=== PATIENT | male | born 1945 | race Caucasian/White ===

== ENCOUNTER 2021-11-28 02:45 | Outpatient (CLI) | payer OTHER, SELFPAY ==
--- NOTE | 2021-12-01 14:32 | PDOC.EEG ---
Neurology EEG EEG: [facility] Department of Neurology EEG REPORT Date of Recordin11/28/21 Interpreting Physician: Dr. Caryn Echols PCP/Referring Provider: Dwight Bland NP Reason for study: Mr. Barrera is a 76 year-old man with several episodes of amnesia/memory loss. Current Medications: amlodipine, 10mg daily, famotidine 20mg daily, HCTZ 25mg daily, losartan 50mg daily, pravastatin 40mg daily, ASA 81mg daily METHODS: A 21 channel digitized electroencephalogram was performed in the [facility]. The 10/20 international system of electrode placement was used and bipolar and referential electrode montages were recorded. In addition to EEG the patient was monitored for EKG and lateral/vertical eye movements. Activation procedures of photic stimulation and hyperventilation were performed if applicable. Video was used during activation procedures and during events where applicable. The duration of the recording was 30 minutes. DESCRIPTION OF EEG: The patient was noted to be awake, drowsy, and asleep during the recording. During maximal wakefulness a 9-Hz posterior background rhythm was present which was well-modulated, symmetrical, reactive to eye opening, and of moderate voltage. With eye opening the background activity changed to a low voltage mixture of alpha, beta, and occasional theta range frequencies. Faster frequencies were present in the bilateral anterior head regions. There was a normal anterior-posterior voltage gradient. During drowsiness, there was attenuation of the posterior dominant background rhythm and vertex waves. Stage II sleep was present with symmetrical sleep spindles, K-complexes, and vertex waves. Please note that he fell asleep rather quickly with noted deep/heavy breathing while asleep. Activating Procedures: Photic stimulation was performed which produced no posterior driving response. Hyperventilation was not performed. EKG: EKG revealed normal sinus rhythm. INTERPRETATION: This EEG is normal during the awake and sleep states as well as during photic stimulation. PRIOR EEG: none CLINICAL CORRELATION: No focal regions of cerebral dysfunction or epileptiform activity was present. Epilepsy remains a clinical diagnosis and a normal EEG does not rule out epilepsy. Please note that he fell asleep rather quickly with noted deep/heavy breathing while asleep. This could be indicative of an underlying sleep disorder in the right clinical context. Correlate clinically. Caryn Echols MD
== END 2021-11-28 02:46 | disposition home or self-care (01) ==
LOC: RT 02:45
PROVIDERS: Visit Provider Nurse Practitioner Family
DX: R41.3 Other amnesia (principal)
CPT/HCPCS: 95819

== ENCOUNTER 2024-03-21 07:33 | Outpatient (CLI) | payer OTHER, SELFPAY ==
--- NOTE | 2024-03-21 22:47 | PDOC.EEG ---
Neurology EEG EEG: [facility] Department of Neurology EEG REPORT Date of Recordin03/21/24 Interpreting Physician: Dr. Caryn Echols PCP/Referring Provider: Dr. David Casey Reason for study: Kenny Barrera is a 78 year-old with episodes of confusion over the last few years - concerning for seizures. Current Medications: Amlodipine 10 mg QD Clopodpgre; 75 mg QD Ezetimibe 10 mg ASA 81 mg QD Fluticasone 2 sprays QD Furosemide 20 mg QD HCTZ 25 mg QD Losartan 50 mg QD Mirtazapine7.5 mg QHS Tamsulosin 0.8 mg Q METHODS: A 21 channel digitized electroencephalogram was performed in the [facility]. The 10/20 international system of electrode placement was used and bipolar and referential electrode montages were recorded. In addition to EEG the patient was monitored for EKG and lateral/vertical eye movements. Activation procedures of photic stimulation and hyperventilation were performed if applicable. Video was used during activation procedures and during events where applicable. The duration of the recording was 30 minutes. DESCRIPTION OF EEG: The patient was noted to be awake, drowsy, and asleep during the recording. During maximal wakefulness a 10-Hz posterior background rhythm was present which was well-modulated, symmetrical, reactive to eye opening, and of moderate voltage. With eye opening the background activity changed to a low voltage mixture of alpha, beta, and occasional theta range frequencies. Faster frequencies were present in the bilateral anterior head regions. There was a normal anterior-posterior voltage gradient. During drowsiness, there was attenuation of the posterior dominant background rhythm and vertex waves. He very quickly fell asleep. Stage II sleep was present with symmetrical sleep spindles, K-complexes, and vertex waves. There was a single T4 sharp-wave during sleep. This was not clearly epileptic. Activating Procedures: Photic stimulation was performed which produced no posterior driving response. Hyperventilation was not performed. EKG: EKG revealed normal sinus rhythm. INTERPRETATION: This EEG is normal during the awake and sleep states as well as during photic stimulation. There was a single right temporal sharp wave that was not clearly epileptic. PRIOR EEG: -11/28/21: normal during the awake and sleep states as well as during photic stimulation. CLINICAL CORRELATION: No definite focal regions of cerebral dysfunction or epileptiform activity was present. Single non-specific finding above. Could consider a repeat sleep deprived EEG or overnight ambulatory EEG as further work-up if clinically helpful. Patient was also once again noted to fall asleep very quickly during the study. This could indicate an underlying sleep disorder. Epilepsy remains a clinical diagnosis and a normal EEG does not rule out epilepsy. Clinical correlation is advised. Caryn Echols MD Date of service: 03/21/24
== END 2024-03-21 07:34 | disposition home or self-care (01) ==
PROVIDERS: Visit Provider Psychiatry & Neurology Neurology
DX: R40.4 Transient alteration of awareness (principal)
CPT/HCPCS: 95819